=== PATIENT | female | born 1975 | race Caucasian/White ===

== ENCOUNTER 2018-08-16 12:17 | Emergency (ER) | payer OTHER ==
[~2018-08-16] VITALS: Ht 157.5 cm; Wt 69.9 kg
--- NOTE | 2018-08-16 14:17 | Diagnostic Imaging Report ---
History: Vision loss in right eye Comparison studies: None Technique: Axial images were obtained from the skull base to the vertex. Coronal and sagittal reconstructions obtained from the axial data. Dose modulation, iterative reconstruction, and/or weight based adjustment of the mA/kV was utilized to reduce the radiation dose to as low as reasonably achievable. Findings: Scalp/skull: No abnormalities. No fractures, blastic or lytic lesions. Extra-axial spaces: No masses. No fluid collections. Brain sulci: Appropriate for age. Ventricles: Normal in size and configuration. No hydrocephalus. Parenchyma: No abnormal densities. No masses, hemorrhage, acute or chronic cortical vascular insults. Sellar/suprasellar region: No abnormalities Craniocervical junction: Patent foramen magnum. No Chiari one malformation. IMPRESSION: No abnormalities . Signed by: DR Andre Whelan M.D. on 08/16/2018 2:14 PM
[2018-08-16] MEDS ORDERED: KETOROLAC TROMETHAMINE 60 MG/2 ML VIAL IM ONE (14:45)
--- OUTSIDE RECORDS SUMMARY | 2018-08-25 11:25 | XMS REPORT | Summary of Care ---
Author Author MICHELLE VERONICA M.D. Organization Unknown Address [facility] Phone Unavailable Care Team Providers Care [employer] Name Role Phone MICHELLE VERONICA M.D. 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 * Start : 30-Oct-2017 Active Ranitidine TABS * Refills: 0 Active Trokendi XR CP24 * Refills: 0 Active Bentyl TABS * Refills: 0 Active BuSpar TABS * Refills: 0 Active Allergies and Adverse Reactions Name Dates Details codeine (Allergy) Status: Active sulfa (Allergy) Status: Active Past Medical History Name Dates Details History of gallbladder disease (V12.79, Z87.19) Status: Resolved History of Hernia (553.9, K46.9) Status: Resolved History of kidney stones (V13.01, Z87.442) Status: Resolved History of ulceration (V13.89, Z87.898) Status: Resolved Procedures Procedure Dates Details MR Knee wo contrast 96711 Date: 30-Oct-2017 History of knee surgery Completed History of gallbladder surgery Completed Immunization Name Dates Details Immunizations not documented Family History Name Dates Details Family history of diabetes mellitus (V18.0, Z83.3) Comments: Family History Status: Active Family history of Heart trouble (429.9, I51.9) Comments: Family History Status: Active Family history of hypertension (V17.49, Z82.49) Comments: Family History Status: Active Family history of malignant neoplasm (V16.9, Z80.9) Comments: Family History Status: Active Social History Name Dates Details - Status: Name Dates Details Former smoker Vital Signs Date Test Result Details No Known Vitals to report Results Date Description Value Details Results not documented Plan of Care Name Dates Details Planned Observations Planned Goals not documented Planned Encounters Appointment; SUSIE PALOMO M.D. On: 30-Nov-2018 9:00 Interventions Provided Plan* Patient Education/Instructions: * MRI report reviewed and finding discussed with patient and family. * Orders: * Physical Therapy (Knee) * Medications: * Medications (prescribed or recommended at this visit): * -Deuexis 800/26.6 1 tab q 6 hrs as needed * - Topical anti-inflammatory prescribed. * Follow Up: * Return to the clinic as needed. Instructions Name Dates Details Instructions not documented Encounters Appointment; SUSIE PALOMO M.D. Encounter Diagnosis: Problem not documented On: 10-Jun-2016 9:45 Appointment; SUSIE PALOMO M.D. Encounter Diagnosis: Problem not documented On: 10-Feb-2017 9:45 Appointment; SUSIE PALOMO M.D. Encounter Diagnosis: Problem not documented On: 19-May-2017 9:45 Appointment; MICHELLE VERONICA M.D. Encounter Diagnosis: Problem not documented On: 30-Oct-2017 9:30 Appointment; MICHELLE VERONICA M.D. Encounter Diagnosis: Problem not documented On: 06-Nov-2017 7:45 Appointment; SUSIE PALOMO M.D. Encounter Diagnosis: Problem not documented On: 01-Dec-2017 9:45 Appointment; MICHELLE VERONICA M.D. Encounter Diagnosis: Problem not documented On: 18-Dec-2017 7:00
== END 2018-08-16 14:48 | disposition home or self-care (01) ==
LOC: FSED 12:17
DX: H53.121 Transient visual loss, right eye (principal); G43.109 Migraine with aura, not intractable, without status migrainosus
CPT/HCPCS: 70450; 81025; 99283; J1885

== ENCOUNTER → 2021-02-27 | Outpatient (CLI) | payer OTHER | LOC: RAD 06:37 | PROVIDERS: ATTEND Family Medicine | DX: J98.8 Other specified respiratory disorders (principal) | CPT/HCPCS: 71046 ==

== ENCOUNTER 2021-03-09 10:23 | Emergency (ER) | payer OTHER ==
[~2021-03-09] VITALS: Ht 157.5 cm; Wt 60.6 kg
[2021-03-09] MEDS ORDERED: ONDANSETRON HCL INJ 2MG/ML 2ML 2 MG/ML VIAL IV STA (10:57)
[2021-03-09] MEDS ORDERED: SODIUM CHLORIDE 0.9% 1000ML 1,000 ML IV STA (10:57)
[2021-03-09] MEDS ORDERED: ONDANSETRON HCL INJ 2MG/ML 2ML 2 MG/ML VIAL ONE (11:18)
[2021-03-09] MEDS ORDERED: SODIUM CHLORIDE 0.9% 1000ML 1,000 ML ONE (11:18)
[2021-03-09] MEDS ORDERED: ALLEGRA-D 12 H1 EACH PO (12:46)
[2021-03-09] MEDS ORDERED: TROKENDI XR200 MG (12:46)
[2021-03-09] MEDS ORDERED: CARDIZEM120 MG PO (12:46)
[2021-03-09] MEDS ORDERED: BUSPIRONE HCL10 MG PO (12:46)
[2021-03-09] MEDS ORDERED: collagen peptides (12:46)
[2021-03-09] MEDS ORDERED: TYLENOL EXTRA500 MG PO (12:46)
[2021-03-09] MEDS ORDERED: MULTI-VITAMIN1 EACH PO (12:46)
[2021-03-09] MEDS ORDERED: NAPROSYN500 MG PO (12:46)
[2021-03-09] MEDS ORDERED: BIOTIN5000 MCG (12:46)
[2021-03-09] MEDS ORDERED: DICYCLOMINE HCL20 MG PO (12:46)
[2021-03-09] MEDS ORDERED: PLAQUENIL200 MG PO (12:46)
[2021-03-09] MEDS ORDERED: SUMATRIPTAN SUC25 MG PO (12:46)
[2021-03-09] MEDS ORDERED: VSL#3 DS PACKE1 EACH (12:46)
[2021-03-09] MEDS ORDERED: DOXYCYCLINE HY100 MG PO (12:48)
[2021-03-09] MEDS ORDERED: ONDANSETRON ODT4 MG PO (12:54)
[2021-03-09 13:05] VITALS: BP 113/63
== END 2021-03-09 13:03 | disposition home or self-care (01) ==
LOC: FSED 10:59
DX: R00.2 Palpitations (principal); R53.1 Weakness; R11.0 Nausea; L94.9 Localized connective tissue disorder, unspecified
CPT/HCPCS: 71046; 80053; 85025; 96374; 99284; J2405; J7030

== ENCOUNTER 2024-11-10 03:44 | Emergency (ER) | payer OTHER ==
[~2024-11-10] VITALS: Ht 157.5 cm; Wt 66.2 kg
[~2024-11-10 03:44] MED LIST: ALLEGRA-D 12 H1 EACH PO; BIOTIN5000 MCG; BUSPIRONE HCL10 MG PO; CARDIZEM120 MG PO; DICYCLOMINE HCL20 MG PO; DOXYCYCLINE HY100 MG PO; MULTI-VITAMIN1 EACH PO; NAPROSYN500 MG PO; ONDANSETRON ODT4 MG PO; PLAQUENIL200 MG PO; SUMATRIPTAN SUC25 MG PO; TROKENDI XR200 MG; TYLENOL EXTRA500 MG PO; VSL#3 DS PACKE1 EACH; collagen peptides
[2024-11-10 03:50] VITALS: PULSE 100; RESP 18; TEMP 97.9
[2024-11-10] MEDS: ACETAMINOPHEN 325 MG TAB PO ONE (04:40)
[2024-11-10 06:06] VITALS: BP 132/70; PULSE 98; RESP 18; TEMP 97.9; O2SAT 98
== END 2024-11-10 06:06 | disposition home or self-care (01) ==
LOC: FSED 04:15
DX: S01.21XA Laceration without foreign body of nose, initial encounter (principal); S02.2XXA Fracture of nasal bones, initial encounter for closed fracture; S90.121A Contusion of right lesser toe(s) without damage to nail, initial encounter; S16.1XXA Strain of muscle, fascia and tendon at neck level, initial encounter; S80.812A Abrasion, left lower leg, initial encounter; S80.811A Abrasion, right lower leg, initial encounter; W01.0XXA Fall on same level from slipping, tripping and stumbling without subsequent striking against object, initial encounter; Y93.01 Activity, walking, marching and hiking; Y92.89 Other specified places as the place of occurrence of the external cause; L94.9 Localized connective tissue disorder, unspecified; Z87.19 Personal history of other diseases of the digestive system
CPT/HCPCS: 70450; 70486; 72125; 99283